=== PATIENT | female | born 1995 | race African-American/Black ===

== ENCOUNTER 2016-04-28 21:37 | Emergency (ER) | payer SELFPAY ==
[~2016-04-28] VITALS: Ht 165.1 cm; Wt 80.0 kg
[2016-04-28 21:39] VITALS: BP 131/78; PULSE 87; RESP 16; TEMP 97.9; O2SAT 99
--- NOTE | 2016-04-28 22:25 | PD ---
HPI Chief Complaint: Back/ Neck Pain or Injury Time Seen by Provider: 22:22 Travel History International Travel<30 days: No Contact w/Intl Traveler<30days: No Traveled to known affect area: No History of Present Illness HPI 21-year-old black female presents to emergency department playing of lower back pain 2 days. 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 She was [place] [facility] [place] when she had gone in with lower pelvic pain. They stated that she has some crystals in her urine which may be associated with early kidney stones. They stated that they did not see any kidney stones at this time though. She denies any fever chills. No nausea vomiting. She does admit to increased frequency and dysuria. No hematuria. No abdominal or pelvic pain now. She states the pain in her lower back is worse with bending and movement. Some relief from remaining still. She rates the pain is moderate. PFSH Past Medical History Medical History: Denies Significant Hx Tetanus Vaccination: < 5 Years ?: Not LMP: YESTERDAY Past Surgical History Surgical History: No Previous Surgery Social History Alcohol Use: No Tobacco Use: No Substance Use: No Allergies-Medications (Allergen,Severity, Reaction): Coded Allergies: No Known Allergies (Unverified , 04/28/16) Reported Meds & Prescriptions Reported Meds & Active Scripts Active Diclofenac Sodium DR (Diclofenac Sodium) 75 Mg Tabdr 75 Mg PO BID Cipro (Ciprofloxacin HCl) 500 Mg Tab 500 Mg PO BID Pyridium (Phenazopyridine HCl) 200 Mg Tab 200 Mg PO Q8H PRN Review of Systems Except as stated in HPI: all other systems reviewed are Neg Physical Exam Narrative GENERAL: Well-developed, well-nourished in no apparent distress. Nontoxic appearing. The patient is resting comfortable in the examination room. She sitting crosslegged in the room. She ambulates with a normal gait. She does not appear to be having any pain. She's texting on her phone. HEAD: Normocephalic, atraumatic. EYES: Pupils equal round and reactive. Extraocular motions intact. No scleral icterus. No injection or drainage. ENT: Nose clear. Throat without erythema, tonsillar hypertrophy or exudate. Uvula midline. Airway patent. NECK: Trachea midline. Supple, nontender, moves head freely. No central bony tenderness or spasm. CARDIOVASCULAR: Regular rate and rhythm without murmurs, gallops, or rubs. RESPIRATORY: Clear to auscultation. Breath sounds equal bilaterally. No wheezes , rales, or rhonchi. GASTROINTESTINAL: Abdomen soft, non-tender, nondistended. No hepato-splenomegaly , or palpable masses. No guarding. EXTREMITIES: No clubbing, cyanosis, or edema. No joint tenderness. BACK: Mild lower back tenderness without point localization. She is able been for 10 touch her toes. No gross spasm. No saddle anesthesia. Without deformity. No flank tenderness. NEUROLOGICAL: Awake, alert and oriented x 3 .Cranial nerves grossly intact. Motor and sensory grossly within normal limits. Normal speech. Data Data Last Documented VS Vital Signs Date Time Temp Pulse Resp B/P Pulse Ox O2 Delivery O2 Flow Rate FiO2 04/28/16 21:39 97.9 87 16 131/78 99 Orders Urinalysis - C+S If Indicated (04/28/16 22:21) Ct Abd/Pel W/O Iv Contrast (04/28/16 23:00) Labs Laboratory Tests Test 04/28/16 22:20 Urine Color YELLOW Urine Turbidity CLEAR Urine pH 6.0 Urine Specific Jasper 1.030 Urine Protein TRACE mg/dL Urine Glucose (UA) NEG mg/dL Urine Ketones NEG mg/dL Urine Occult Blood LARGE Urine Nitrite NEG Urine Bilirubin NEG Urine Urobilinogen 2.0 MG/DL Urine Leukocyte Esterase SMALL Urine RBC /hpf Urine WBC 5 /hpf Urine Squamous Epithelial 1 /hpf Cells Urine Mucus FEW /lpf Microscopic Urinalysis Comment CULT NOT INDICATED MDM Medical Decision Making Medical Screen Exam Complete: Yes Emergency Medical Condition: Yes Medical Record Reviewed: Yes Interpretation(s) Laboratory Tests Test 04/28/16 22:20 Urine Color YELLOW Urine Turbidity CLEAR Urine pH 6.0 Urine Specific Jasper 1.030 Urine Protein TRACE mg/dL Urine Glucose (UA) NEG mg/dL Urine Ketones NEG mg/dL Urine Occult Blood LARGE Urine Nitrite NEG Urine Bilirubin NEG Urine Urobilinogen 2.0 MG/DL Urine Leukocyte Esterase SMALL Urine RBC /hpf Urine WBC 5 /hpf Urine Squamous Epithelial 1 /hpf Cells Urine Mucus FEW /lpf Microscopic Urinalysis Comment CULT NOT INDICATED Last 24 hours Impressions Abdomen/Pelvis CT 04/28/16 2300 Signed Impressions: Service Date/Time: Thursday, April 28, 2016 23:11 - CONCLUSION: Normal examination. Samuel Lopez MD Differential Diagnosis MDM: High Differential diagnoses: Fracture, sprain, strain, HNP, nerve or vascular injury , UTI, pyelonephritis Narrative Course Patient's urine has too numerous to count RBCs. We will obtain a CT scan to rule out possible kidney stone. This may be associated with hemorrhagic cystitis versus blood from a menstrual cycle. She does not have symptoms consistent with a kidney stone. She resting very comfortable in the examination room. CT scan of the abdomen and pelvis is negative for intra-abdominal process or kidney stone. The patient will be treated for myofascial back pain and cystitis. Diagnosis Primary Impression: myofascial back pain Additional Impression: Cystitis Patient Instructions: General Instructions Departure Forms: Tests/Procedures, Work Release Special Instructions: No work 3 days. Additional Instructions: Rest. Ice or heat whichever seems improved her symptoms the best. Diclofenac, Pyridium and Cipro. Follow-up with a primary care doctor in one week. Return to the ER for emergencies. Med/Other Pt SpecificInfo: Prescription(s) given Scripts Diclofenac Sodium DR 75 Mg Tabdr75 Mg PO BID #20 TAB Prov:Cori Benavides MD 04/28/16 Ciprofloxacin (Cipro)500 Mg [id number] Mg PO BID #6 TAB Prov:Cori Benavides MD 04/28/16 Phenazopyridine (Pyridium)200 Mg [id number] Mg PO Q8H PRN (DYSURIA) #9 TAB Prov:Cori Benavides MD 04/28/16 Disposition: 01 DISCHARGE HOME Condition: Stable [place] Apr 28, 2016 22:25
[2016-04-28 22:45] LABS: BLOOD, URINE LARGE (NEG); COMMENT (UR) CULT NOT INDICATED; CULTURE IF INDICATED CULT NOT INDICATED; GLUCOSE,URINE NEG (NEG); KETONE, URINE NEG (NEG); MUCUS URINE FEW /lpf (OCC); NITRITE,URINE NEG (NEG); SQUAMOUS EPITHELIAL CELL URINE 1 /hpf (0-5); URINE COLOR YELLOW (YELLW/STRAW)
--- NOTE | 2016-04-28 23:31 | RADRPT ---
EXAM DATE/TIME: 04/28/2016 23:11 [facility] COMPARISON: No previous studies available for comparison. INDICATIONS : Low back pain for two days. ORAL CONTRAST: No oral contrast ingested. RADIATION DOSE: 8.33 CTDIvol (mGy) MEDICAL HISTORY : None SURGICAL HISTORY : None. ENCOUNTER: Initial ACUITY: 2 days PAIN SCALE: 5/10 LOCATION: Bilateral low back TECHNIQUE: Volumetric scanning of the abdomen and pelvis was performed. Using automated exposure control and ad justment of the mA and/or kV according to patient size, radiation dose was kept as low as reasonably achievable to obtain optimal diagnostic quality images. FINDINGS: LOWER LUNGS: The visualized lower lungs are clear. LIVER: Homogeneous density without lesion. There is no dilation of the biliary tree. No calcified gallston es. SPLEEN: Normal size without lesion. PANCREAS: Within normal limits. KIDNEYS: Normal in size and shape. There is no mass, stone, or hydronephrosis. ADRENAL GLANDS: Within normal limits. VASCULAR: There is no aortic aneurysm. BOWEL/MESENTERY: The stomach, small bowel, and colon demonstrate no acute abnormality. There is no free intraperitone al air or fluid. ABDOMINAL WALL: Within normal limits. RETROPERITONEUM: There is no lymphadenopathy. BLADDER: No wall thickening or mass. REPRODUCTIVE: Within normal limits. INGUINAL: There is no lymphadenopathy or hernia. MUSCULOSKELETAL: Within normal limits for patient age. CONCLUSION: Normal examination. Samuel Lopez MD on April 28, 2016 at 23:25 Board Certified Radiologist. This report was verified electronically.
[2016-04-28] MEDS ORDERED: DICL75TA PO (23:37)
[2016-04-28] MEDS ORDERED: CIPR-9 PO (23:37)
[2016-04-28] MEDS ORDERED: PYRI200T4 PO (23:37)
== END 2016-04-29 | disposition home or self-care (01) ==
LOC: NEPB 21:37
DX: M54.5 Low back pain (principal); N30.90 Cystitis, unspecified without hematuria
CPT/HCPCS: 74176; 81001